=== PATIENT | female | born 2000 | race Two or more races ===

== ENCOUNTER 2021-03-11 17:43 | Emergency (ER) | payer OTHER ==
[~2021-03-11] VITALS: Ht 160 cm; Wt 56.0 kg
[2021-03-11] MEDS: LIDOCAINE 1% 10 ML VIAL SQ ONE (18:23)
[2021-03-11] MEDS: BACITRACIN 0.9 GM PACKET OINTMENT TP ONE (18:24)
[2021-03-11] MEDS: POVIDONE-IODINE 10% 15 ML SOLUTION UD TP ONE (18:24)
[2021-03-11] MEDS: ACETAMINOPHEN 500 MG TABLET PO ONE (18:25)
[2021-03-11 20:11] VITALS: BP 111/65
== END 2021-03-11 20:43 | disposition home or self-care (01) ==
LOC: EMS 17:47
DX: S61.412A Laceration without foreign body of left hand, initial encounter (principal); W45.8XXA Other foreign body or object entering through skin, initial encounter; Y93.39 Activity, other involving climbing, rappelling and jumping off; Y92.89 Other specified places as the place of occurrence of the external cause; Y99.8 Other external cause status
CPT/HCPCS: 12002; 99282; J3490